=== PATIENT | male | born 1990 | race African-American/Black ===

== ENCOUNTER 2020-12-07 18:12 | Emergency (ER) | payer MEDICAID ==
[~2020-12-07] VITALS: Ht 182.9 cm; Wt 91.0 kg
[2020-12-07] MEDS ORDERED: LORAZEPAM 2MG/ML CPJ IV ONE (19:15)
[2020-12-07] MEDS ORDERED: SODIUM CHLORIDE 0.9% 1,000 ML IV ONE (19:30)
[2020-12-07 19:31] LABS: CHLORIDE 107 mEq/L (98-107)
[2020-12-07 19:33] LABS: BASOPHILS % 0.4 % (0.0-2.0); HEMATOCRIT. 44.8 % (42.0-52.0); HEMOGLOBIN. 15.2 g/dL (14.0-18.0); LYMPHOCYTES % 9.8 % (20.0-50.0); MEAN CORPUSCULAR HEMOGLOBIN 30.2 pg (28.0-32.0); MEAN CORPUSCULAR VOLUME 89.2 fL (80.0-94.0); MONOCYTES % 6.8 % (2.0-8.0); PLATELET 310 x1000/uL (130-400); RED BLOOD CELL COUNT 5.02 mill/uL (4.7-6.1)
[2020-12-07 19:35] LABS: ETHANOL BLOOD < 10 mg/dL
[2020-12-07 20:01] LABS: *AMPHETAMINES SCREEN URINE PRESUMTIVE POSITIVE (NEGATIVE); *BARBITURATES SCREEN URINE NEGATIVE (NEGATIVE); *BENZODIAZEPINES SCREEN URINE NEGATIVE (NEGATIVE); *COCAINE SCREEN URINE NEGATIVE (NEGATIVE); METHADONE URINE SCREEN NEGATIVE (NEGATIVE); OPIATES URINE SCREEN NEGATIVE (NEGATIVE)
[2020-12-07 20:02] LABS: CANNABINOID URINE SCREEN PRESUMTIVE POSITIVE (NEGATIVE); PHENCYCLIDINE URINE SCREEN NEGATIVE (NEGATIVE)
[2020-12-08 00:47] VITALS: BP 134/92
== END 2020-12-08 00:54 | disposition home or self-care (01) ==
LOC: ER 18:12
DX: T43.621A Poisoning by amphetamines, accidental (unintentional), initial encounter (principal); F15.129 Other stimulant abuse with intoxication, unspecified; R00.0 Tachycardia, unspecified; R03.0 Elevated blood-pressure reading, without diagnosis of hypertension; Y92.89 Other specified places as the place of occurrence of the external cause
CPT/HCPCS: 36415; 71045; 80053; 80305; 80320; 83880; 84484; 85025; 93005; 96361; 96374; 99285; J2060; J7030; Z7610; G0480